=== PATIENT | female | born 1975 | race Hispanic/Latino ===

== ENCOUNTER 2017-04-20 11:13 | Day surgery (SDC) | payer OTHER ==
[~2017-04-20 11:13] MED LIST: NACL 0.9% 1000 ML 1,000 ML IV SCH; PEPCID PO NR; VERSED IV NR
[2017-04-20] MEDS ORDERED: ZOFRAN IV PRN (12:35)
[2017-04-20] MEDS ORDERED: DILAUDID IV PRN (12:35)
--- NOTE | 2017-04-20 12:35 | Anesthesia Day of Surgery ---
Anesthesia Day of Surgery - Day of Surgery Patient Examined: Yes Patient H&P Reviewed: Yes Patient is NPO: Yes
--- NOTE | 2017-04-20 12:35 | Anesthesia Consultation ---
Anesthesia Consult and Med Hx Date of service: 04/20/17 - Airway Anesthetic Teeth Evaluation: Good ROM Head & Neck: Adequate Mental/Hyoid Distance: Adequate Mallampati Class: Class II Intubation Access Assessment: Probably Good - Pulmonary Exam CTA: Yes - Cardiac Exam Cardiac Exam: RRR - Pre-Operative Health Status ASA Pre-Surgery Classification: ASA2 Proposed Anesthetic Plan: General - Pulmonary Hx Smoking: Yes (1/2 PPD X 25 YRS) Hx Asthma: No Hx Sleep Apnea: No (MARY PRE SCREEN LOW RISK) - Cardiovascular System Hx Hypertension: No - Central Nervous System Hx Back Pain: Yes (multiple hip surgeries due to defect) Hx Psychiatric Problems: Yes (anxiety, depression) - Endocrine Hx Renal Disease: No (stones) Hx Cirrhosis: No Hx Liver Disease: No (hep A 22 yrs ago) Hx Non-Insulin Dependent Diabetes: No Hx Thyroid Disease: No - Other Systems Hx Cancer: No
[2017-04-20] MEDS ORDERED: DILAUDID ONE (13:49)
[2017-04-20] MEDS ORDERED: DIPRIVAN 10 MG/ML IV ONE (13:49)
[2017-04-20] MEDS ORDERED: ROCEPHIN/NS 1 GM/50 ML 1 GM/50 ML BAG IV ONE (14:00)
[2017-04-20] MEDS ORDERED: XYLOCAINE MPF 2% ONE (14:09)
[2017-04-20] MEDS ORDERED: DECADRON ONE (14:10)
[2017-04-20] MEDS ORDERED: ZOFRAN ONE (14:10)
[2017-04-20] MEDS ORDERED: ePHEDrine SULFATE ONE (14:18)
[2017-04-20] MEDS ORDERED: WATER FOR IRRIG STERILE IR ONE (14:27)
[2017-04-20] MEDS ORDERED: TORADOL ONE (14:27)
--- NOTE | 2017-04-20 14:32 | Short Stay Summary ---
Short Stay Documentation Date of service: 04/20/17 - History H&P: obtained from office - Allergies and Medications Current Medications: Allergies No Known Allergies Allergy (Verified 04/09/17 11:40) Home Medications Medication Instructions Recorded Confirmed Last Taken Type Citalopram Hydrobromide 40 mg PO DAILY 04/09/17 04/20/17 04/19/17 History [Citalopram HBr] Oxybutynin [Ditropan] 5 mg PO TID 04/09/17 04/20/17 04/19/17 History Active Medications Famotidine (Pepcid) 20 mg PO PREOP NR Stop: 04/20/17 21:00 Last Admin: 04/20/17 12:58 Dose: 20 mg Hydromorphone HCl (Dilaudid) 0.25 mg IV Q10MIN PRN PRN Reason: Pain, Moderate (4-6) Stop: 04/20/17 23:59 Sodium Chloride (Nacl 0.9% 1000 Ml) 1,000 mls @ 75 mls/hr IV DIRECT FÁTIMA Last Admin: 04/20/17 12:58 Dose: 75 mls/hr Ceftriaxone Sodium (Rocephin/Ns 1 Gm/50 Ml) 1 gm in 50 mls @ 100 mls/hr IV PREOP ONE PRN Reason: Protocol Stop: 04/20/17 14:29 Midazolam HCl (Versed) 2 mg IV PREOP NR Stop: 04/20/17 23:59 Last Admin: 04/20/17 13:30 Dose: 2 mg - Brief post op/procedure progress note Date of procedure: 04/20/17 Pre-op diagnosis: bladder abn, neoplasm uncertian Post-op diagnosis: same Procedure: cysto, rpg, bladder bx fulg Anesthesia: GETA Findings: post rt wall erythema trigone erythema / ?inflamm Surgeon: ALEIDA AMAYA Estimated blood loss: minimal Pathology: list (bx x2) - Hospital course Hospital course: or pacu home - Disposition Condition at discharge: Good Disposition: DC-01 TO HOME OR SELFCARE Short Stay Discharge Plan Activity: advance as tolerated Diet: advance as tolerated Follow up with: ALEIDA AMAYA MD [Staff Physician] - 7 Days
[2017-04-20 15:44] VITALS: BP 109/76
--- NOTE | 2017-04-21 08:25 | Fluoroscopy Report ---
NINE FLUOROSCOPIC IMAGES AT BILATERAL RETROGRADE PYELOGRAM: 04/20/17 CLINICAL: Right renal calculus. FINDINGS: Peace Officer images demonstrate a right renal calculus. Subsequent images demonstrate retrograde opacification of normal renal collecting systems and ureters.. For more detail, please refer to the operative report.
--- NOTE | 2017-05-03 03:45 | Operative Report ---
PREOPERATIVE DIAGNOSIS: Bladder abnormality, neoplasm uncertain. POSTOPERATIVE DIAGNOSIS: Bladder abnormality, neoplasm uncertain. PROCEDURES: Cystoscopy with retrograde pyelogram, bladder biopsy, fulguration. ANESTHESIA: General. FINDINGS: Posterior right wall erythema, trigone erythema and inflammation. SURGEON: Liam Morel MD ESTIMATED BLOOD LOSS: Minimal. PATHOLOGY: Biopsy x 2. COMPLICATIONS: None. CLINICAL INDICATIONS: Counseled on RCBA, antibiotics and SCDs. DESCRIPTION OF PROCEDURE: The patient transferred to the OR suite in supine position, anesthesia, dorsal lithotomy, prepped and draped in standard fashion. A 22-Welsh scope passed. Pancystoscopy with 30 and 70-degree lens demonstrated no obvious high suspicion tumors. There was some erythema and inflammation at the trigone in the posterior right wall. Right UO cannulated, 8-Welsh cone-tipped catheter, contrast injected, normal right distal ureter, proximal ureter, renal pelvis calyces. No filling defects or hydronephrosis. Repeated on the left side with similar normal findings. Biopsy taken of the trigone and then the posterior right wall and surrounding area fulgurated. These were sent for pathology. Scope withdrawn. No palpable urethral masses. The patient awakened and transferred to the PACU in good and stable condition. JOB# [id number] ATS/NTS
== END 2017-04-20 15:53 | disposition home or self-care (01) ==
LOC: OR 11:13
PROVIDERS: ATTEND Urology
DX: N30.30 Trigonitis without hematuria (principal); N32.89 Other specified disorders of bladder; F17.210 Nicotine dependence, cigarettes, uncomplicated; I10 Essential (primary) hypertension; Z87.442 Personal history of urinary calculi; Z98.51 Tubal ligation status; Z98.890 Other specified postprocedural states; F41.9 Anxiety disorder, unspecified; F32.9 Major depressive disorder, single episode, unspecified; Z86.19 Personal history of other infectious and parasitic diseases
CPT/HCPCS: 52204; 74420; 88305; A4217; C1758; J0696; J1100; J1170; J1885; J2250; J2405; J2704; J7030; Q9967